=== PATIENT | female | born 1975 | race Caucasian/White ===

== ENCOUNTER 2017-07-30 07:37 | Outpatient (CLI) | payer OTHER ==
[~2017-07-30 07:37] MED LIST: INTESTINEX680 MG PO; OMEPRAZOLE20 MG PO; PERCOCET 5/3251 TAB PO
== END 2017-07-30 07:57 | disposition home or self-care (01) ==
LOC: TOM 07:37
DX: R10.2 Pelvic and perineal pain (principal); R10.9 Unspecified abdominal pain

== ENCOUNTER 2017-07-30 07:39 | Outpatient (CLI) | payer OTHER | END 2017-07-30 07:57 | disposition home or self-care (01) | LOC: SONOGRAMA 07:39 | DX: R10.2 Pelvic and perineal pain (principal) ==

== ENCOUNTER 2017-08-14 11:15 | Outpatient (CLI) | payer OTHER | END 2017-08-14 11:28 | disposition home or self-care (01) | LOC: RX STUDY 11:15 | DX: N92.0 Excessive and frequent menstruation with regular cycle (principal); N80.1 Endometriosis of ovary ==

== ENCOUNTER 2018-01-26 05:40 | Day surgery (SDC) | payer OTHER | END 2018-01-26 10:10 | disposition home or self-care (01) | LOC: AMB-ENDOS 05:40 | DX: K59.09 Other constipation (principal) ==

== ENCOUNTER 2018-03-11 11:32 | Outpatient (CLI) | payer OTHER | END 2018-03-11 11:41 | disposition home or self-care (01) | LOC: SONOGRAMA 11:32 | DX: N83.292 Other ovarian cyst, left side (principal); N83.291 Other ovarian cyst, right side ==

== ENCOUNTER 2018-09-08 07:26 | Outpatient (CLI) | payer OTHER | END 2018-09-08 07:38 | disposition home or self-care (01) | LOC: MRI 07:26 | DX: N84.0 Polyp of corpus uteri (principal) | CPT/HCPCS: 72196 ==